=== PATIENT | female | born 1965 | race Two or more races ===

== ENCOUNTER → 2024-09-30 | Outpatient (CLI) | payer BC, SELFPAY ==
[2024-09-30 10:03] LABS: Basophils % (Auto) 1 % (0-2.5); Eosinophils # (Auto) 0.3 Thou/mm3 (0.0-0.5); Eosinophils % (Auto) 5 % (0-10); Hematocrit 40.3 % (36.0-46.0); Hemoglobin 13.9 g/dL (12.0-16.0); Immature Granulocytes % (Auto) 0 % (0-0); Immature Granulocytes Auto 0.01 Thou/mm3 (0.00-0.00); Lymphocytes # (Auto) 2.2 Thou/mm3 (1.0-4.8); Lymphocytes % (Auto) 35 % (10-50); Mean Corpuscular HGB Conc 34.5 g/dl (31.0-37.0); Mean Corpuscular Hemoglobin 30.3 pg (25.0-35.0); Mean Corpuscular Volume 88 fL (80-100); Monocytes # (Auto) 0.5 Thou/mm3 (0.0-0.8); Monocytes % (Auto) 8 % (0-12); Neutrophils # (Auto) 3.1 Thou/mm3 (1.8-7.7); Neutrophils % (Auto) 51 % (37-80); Nucleated Red Blood Cell % 0 /100 WBC (0); Platelet Count 317 Thou/mm3 (140-440); RDW Standard Deviation 40.8 fL (36.4-46.3); Red Blood Count 4.58 Miln/mm3 (4.00-5.20); White Blood Count 6.1 Thou/mm3 (3.6-11.0)
[2024-09-30 10:13] LABS: Glucose Estimated Average 128 mg/dL (80-131); Hemoglobin A1C 6.1 % Hgb (4.8-6.0)
[2024-09-30 11:18] LABS: Vitamin D 25 Hydroxy Total 30.1 ng/mL (7.3-40.2)
[2024-09-30 11:48] LABS: Alanine Aminotransferase 17 U/L (10-49); Albumin, Serum 4.4 gm/dL (3.5-5.0); Albumin/Globulin Ratio 1.7 (1.2-2.2); Alkaline Phosphatase 78 U/L (46-116); Anion Gap 8 (7-16); Aspartate Amino Transferase 18 U/L (0-34); BUN/Creatinine Ratio 22 Ratio (12-20); Bilirubin,Total 0.6 mg/dL (0.3-1.2); Blood Urea Nitrogen 13 mg/dL (9-23); Calcium 9.4 mg/dL (8.3-10.6); Calcium (Corrected) 9.4 mg/dL (8.5-10.1); Carbon Dioxide 28.3 mMol/L (20.0-31.0); Cardiac Risk Estimate 4.9 RATIO (3.7-5.6); Chloride 103 mMol/L (98-107); Cholesterol 188 mg/dL (132-200); Creatinine (Component) 0.6 mg/dL (0.6-1.3); Globulin 2.6 gm/dL (2.3-3.5); Glucose 122 mg/dL (74-106); HDL Cholesterol 38 mg/dL (40-60); LDL Cholesterol,Calculated 113 mg/dL (0-130); Osmolality,Calculated 278 (275-295); Potassium 4.1 mMol/L (3.4-5.1); Sodium 139 mMol/L (136-145); Thyroid Stimulating Hormone 0.58 uIU/mL (0.55-4.78); Triglycerides 186 mg/dL (30-150); eGFR > 60 See Note
== END | disposition home or self-care (01) ==
PROVIDERS: PCP Internal Medicine; Referring Provider Internal Medicine; Visit Provider Internal Medicine
DX: Z00.00 Encounter for general adult medical examination without abnormal findings (principal); E55.9 Vitamin D deficiency, unspecified
CPT/HCPCS: 36415; 80053; 80061; 82306; 83036; 84439; 84443; 85025

== ENCOUNTER → 2024-10-01 | Outpatient (CLI) | payer BC, SELFPAY ==
[2024-10-04 06:46] LABS: Fecal Globin Result NOT DETECTED (NOT DETECTED)
== END | disposition home or self-care (01) ==
LOC: SLDO 10:35
PROVIDERS: PCP Internal Medicine; Referring Provider Internal Medicine; Visit Provider Internal Medicine
DX: Z00.00 Encounter for general adult medical examination without abnormal findings (principal); E55.9 Vitamin D deficiency, unspecified
CPT/HCPCS: 82274; G0328

== ENCOUNTER → 2024-10-29 | Outpatient (CLI) | payer BC, SELFPAY ==
--- NOTE | 2024-10-29 09:00 | XR_ITS ---
Examination: Abdomen sonogram, complete Date and time of exam: October 29, 2024 0914 hrs. Indications: Upper abdominal pain beginning several months ago. Technique: Multiple real-time grayscale transabdominal sonographic images of the abdomen have been obtained. Findings: Normal gallbladder Normal common bile duct 0.4 cm Pancreatic head 2.2 cm Aorta not enlarged Liver 13.5 cm smooth contour no focal liver lesions Normal hepatopedal portal venous flow Patent IVC Right kidney 11.5 x 6.2 x 5.7 cm renal cortex 1.1 cm Mild right renal parenchymal scar formation Left kidney 11.0 x 5.5 x 5.5 cm cortex 1.6 cm No hydronephrosis Spleen 7.8 cm Impression: Normal gallbladder, normal common bile duct Liver normal size no focal liver lesions
--- NOTE | 2024-10-29 09:30 | XR_ITS ---
Examination: Transvaginal ultrasound of the pelvis, complete Technique: Transvaginal sonographic images pelvis performed using jaffe scale imaging Exam date and time: October 29, 2024 0929 hrs. Indications: Pelvic pain beginning several months ago Findings: Uterus 6.1 x 2.6 x 3.7 cm Endometrial stripe 0.3 cm No uterine mass Ovaries obscured by bowel gas Impression: Limited study Negative for uterine mass Normal endometrial stripe.
== END | disposition home or self-care (01) ==
LOC: CDIM 08:52
PROVIDERS: PCP Internal Medicine; Referring Provider Internal Medicine; Visit Provider Internal Medicine
DX: R10.30 Lower abdominal pain, unspecified (principal)
CPT/HCPCS: 76700; 76830

== ENCOUNTER → 2024-12-25 | Outpatient (CLI) | payer SELFPAY ==
[2024-12-26 10:31] LABS: BVAG Candida Negative (Negative); Bacterial Vaginosis Markers Negative (Negative); Candida glabrata Negative (Negative); Candida krusei PCR Negative (Negative); Trichomonas Negative (Negative)
== END | disposition home or self-care (01) ==
PROVIDERS: Referring Provider Specialist; Visit Provider Specialist
DX: B37.89 Other sites of candidiasis (principal); N76.0 Acute vaginitis; A59.01 Trichomonal vulvovaginitis
CPT/HCPCS: 81514

== ENCOUNTER → 2025-01-01 | Outpatient (CLI) | payer BC, SELFPAY ==
--- NOTE | 2025-01-01 14:15 | XR_ITS ---
Examination: Screening digital mammography, bilateral Computer aided detection 3-D breast Tomosynthesis, bilateral Date and time of exam: January 01, 2025 at 1421 hours Compared to mammograms dating to 05/20/2013 Indication: Screening Technique: Nonmagnified MLO, CC views of the breasts to been obtained, reconstructed from 3-D Tomosynthesis images. R2 computer aided detection program utilized for evaluation of suspicious masses and/or abnormal calcifications. 3-D Tomosynthesis images obtained. Findings: Scattered areas of fibroglandular density Benign calcifications. No interval suspicious masses Impression: BI-RADS category II: Benign Findings. Recommend 1 year follow-up mammogram.
== END | disposition home or self-care (01) ==
PROVIDERS: PCP Internal Medicine; Referring Provider Internal Medicine; Visit Provider Internal Medicine
DX: Z12.31 Encounter for screening mammogram for malignant neoplasm of breast (principal); R92.323 Mammographic fibroglandular density, bilateral breasts; R92.1 Mammographic calcification found on diagnostic imaging of breast
CPT/HCPCS: 77063; 77067

== ENCOUNTER → 2025-07-16 | Outpatient (CLI) | payer BC, SELFPAY ==
[2025-07-16 11:00] LABS: B-Type Natriuretic Peptide 43 pg/mL (0-100)
[2025-07-16 11:01] LABS: Vitamin D 25 Hydroxy Total 26.7 ng/mL (7.3-40.2)
[2025-07-16 11:05] LABS: Alanine Aminotransferase 23 U/L (10-49); Albumin, Serum 4.5 gm/dL (3.5-5.0); Albumin/Globulin Ratio 1.9 (1.2-2.2); Alkaline Phosphatase 81 U/L (46-116); Anion Gap 8 (7-16); Aspartate Amino Transferase 22 U/L (0-34); BUN/Creatinine Ratio 17 Ratio (12-20); Bilirubin,Total 0.5 mg/dL (0.3-1.2); Blood Urea Nitrogen 12 mg/dL (9-23); Calcium 8.9 mg/dL (8.3-10.6); Calcium (Corrected) 8.9 mg/dL (8.5-10.1); Carbon Dioxide 29.1 mMol/L (20.0-31.0); Cardiac Risk Estimate 4.3 RATIO (3.7-5.6); Chloride 105 mMol/L (98-107); Cholesterol 239 mg/dL (132-200); Creatinine (Component) 0.7 mg/dL (0.6-1.3); Free T4 (Free Thyroxine) 1.21 ng/dL (0.89-1.76); Globulin 2.4 gm/dL (2.3-3.5); Glucose 119 mg/dL (74-106); HDL Cholesterol 55 mg/dL (40-60); LDL Cholesterol,Calculated 161 mg/dL (0-130); Osmolality,Calculated 283 (275-295); Potassium 4.0 mMol/L (3.4-5.1); Sodium 142 mMol/L (136-145); Thyroid Stimulating Hormone 0.29 uIU/mL (0.55-4.78); Total Protein 6.9 gm/dL (5.7-8.2); Triglycerides 117 mg/dL (30-150); eGFR > 60 See Note
[2025-07-16 11:06] LABS: Basophils # (Auto) 0.0 Thou/mm3 (0.0-0.2); Basophils % (Auto) 1 % (0-2.5); Eosinophils # (Auto) 0.2 Thou/mm3 (0.0-0.5); Eosinophils % (Auto) 2 % (0-10); Hematocrit 41.6 % (36.0-46.0); Hemoglobin 13.9 g/dL (12.0-16.0); Immature Granulocytes Auto 0.02 Thou/mm3 (0.00-0.00); Lymphocytes # (Auto) 2.3 Thou/mm3 (1.0-4.8); Lymphocytes % (Auto) 27 % (10-50); Mean Corpuscular HGB Conc 33.4 g/dl (31.0-37.0); Mean Corpuscular Hemoglobin 29.7 pg (25.0-35.0); Mean Corpuscular Volume 89 fL (80-100); Monocytes # (Auto) 0.7 Thou/mm3 (0.0-0.8); Monocytes % (Auto) 8 % (0-12); Neutrophils # (Auto) 5.4 Thou/mm3 (1.8-7.7); Neutrophils % (Auto) 62 % (37-80); Nucleated Red Blood Cell # 0.00 Thou/mm3 (0.00-0.00); Nucleated Red Blood Cell % 0 /100 WBC (0); Platelet Count 276 Thou/mm3 (140-440); RDW Standard Deviation 42.7 fL (36.4-46.3); Red Blood Count 4.68 Miln/mm3 (4.00-5.20); White Blood Count 8.6 Thou/mm3 (3.6-11.0)
[2025-07-16 11:22] LABS: Glucose Estimated Average 131 mg/dL (80-131); Hemoglobin A1C 6.2 % Hgb (4.8-6.0)
== END | disposition home or self-care (01) ==
LOC: COPL 09:21
PROVIDERS: PCP Internal Medicine; Referring Provider Internal Medicine; Visit Provider Internal Medicine
DX: Z00.00 Encounter for general adult medical examination without abnormal findings (principal); E55.9 Vitamin D deficiency, unspecified
CPT/HCPCS: 36415; 80053; 80061; 82306; 83036; 83880; 84439; 84443; 85025